=== PATIENT | female | born 1985 | race Caucasian/White ===

== ENCOUNTER 2016-07-27 16:25 | Emergency (ER) | payer OTHER ==
[~2016-07-27] VITALS: Ht 167.6 cm; Wt 89.2 kg
[2016-07-27 16:29] VITALS: TEMP 37.2; Ht 167.6 cm; Wt 89.2 kg
--- NOTE | 2016-07-27 19:34 | DIAGNOSTIC IMAGING REPORT ---
CHEST ONE VIEW PORTABLE CLINICAL HISTORY: Chest pain. COMPARISON STUDY: No previous studies for comparison. FINDINGS: Lung volumes are normal. Lungs are clear. There is no pneumothorax or pleural effusion. Cardiac size is normal. Mediastinal contours are normal. There is no evidence of pulmonary edema. IMPRESSION: No acute cardiopulmonary findings. Electronically signed by: Emanuel Shah M.D. 07/27/2016 7:33 PM Dictated Date/Time: 07/27/2016 7:33 PM
--- NOTE | 2016-07-27 19:51 | EMERGENCY ROOM VISIT NOTE ---
History Report prepared by Roger: Rupert Dexter Under the Supervision of: Dr. Rupert Demarco M.D. First contact with patient: 18:26 Chief Complaint: ILLNESS Stated Complaint: CONGESTED, HOT/COLD, COUGH History of Present Illness The patient is a 31 year old female who presents to the Emergency Room with complaints of a persistent illness beginning about 2 weeks ago. She notes it started as cold symptoms. She notes she and her family are moving to [place] from [place] and has had a lack of sleep recently. She started getting aches and chills, and notes her joints feel sore. She has a sporadic cough and headache, but denies having any nausea, vomiting, ear ache, or abdominal pain. The patient reports drinking plenty of fluids. She denies having any other medical problems, any history of bronchitis, or any chance of . She denies smoking or using alcohol. The patient did not receive the flu shot this year. Source of History: patient, family Onset: about 2 weeks ago Position: other (global) Quality: other (illness) Timing: other (persistent) Associated Symptoms: + chills, + cough, + headache, No nausea, No vomiting Note: The patient notes her joints feel achy and sore. The patient denies any ear aches. Review of Systems See HPI for pertinent positives & negatives. A total of 10 systems reviewed and were otherwise negative. Past Medical & Surgical Medical Problems: (1) uterine contractions Old medical records were reviewed. Nurse's notes were reviewed and I agree with. [place] history cardiac disease, pulmonary disease, PE Family History No pertinent family history stated. Social History Smoking Status: Never Smoker Drug Use: none Marital Status: Housing Status: lives with family Current/Historical Medications No Active Prescriptions or Reported Meds Allergies Coded Allergies: Morphine (Verified Allergy, Unknown, ITCHY AND HIVES, 07/27/16) Physical Exam Vital Signs Date Time Temp Pulse Resp B/P Pulse Ox O2 Delivery O2 Flow Rate FiO2 07/27/16 20:23 74 16 111/68 99 07/27/16 16:29 37.2 77 18 108/71 98 Room Air Physical Exam General: Well developed well nourished in no acute distress, breathing comfortably on room air. Normal speech HEENT: Normal cephalic atraumatic. Pupils are equal round and reactive to light. Sclerae anicteric Extraocular movements are intact. Oropharynx is pink with moist mucous membranes. No swelling of the mouth lips or tongue. Tms are normal bilaterally. Neck: Supple with a midline trachea. No meningeal signs or stiffness, no JVD or bruits. No Stridor. Chest: Clear to auscultation bilaterally. No wheezes or rhonchi. No increased work of breathing. Heart: regular rate and rhythm. Abdomen: Soft nontender, nondistended without rebound guarding or rigidity. Extremities: No cyanosis clubbing or edema. No calf tenderness or assymetry Spine/Back. Non tender to palpation. No CVA tenderness Skin: Good turgor without rashes. Neurologic exam: Cranial nerves two through 12 are intact. Motor and sensation are intact and symmetrical throughout. Medical Decision & Procedures ER Provider Diagnostic Interpretation: X-ray results as stated below per interpretation by me and the radiologist: CHEST ONE VIEW PORTABLE FINDINGS: Lung volumes are normal. Lungs are clear. There is no pneumothorax or pleural effusion. Cardiac size is normal. Mediastinal contours are normal. There is no evidence of pulmonary edema. IMPRESSION: No acute cardiopulmonary findings. Electronically signed by: Emanuel Shah M.D. 07/27/2016 7:33 PM Dictated Date/Time: 07/27/2016 7:33 PM ED Course 1840: Past medical records reviewed. The patient was evaluated in room C1B, and a complete history and physical examination were performed. 2009: I reassessed the patient and she is doing better. 2015: Upon reevaluation, the patient is doing well. I discussed the results and treatment plan with the patient. She verbalized agreement of the treatment plan. The patient was discharged home. Medical Decision Differentials include bronchitis, viral illness, RSV, pneumonia, dehydration, otitis media, and pneumonia. This patient comes in as described above. She's had a cough for a week or so and over the last several days of body aches. She looks well here. She is completely [id number] .she's not hypoxemic. She's not coughing. She is afebrile. Her lungs are clear.. She has no wheezing. Her tympanic membranes are normal. She has nothing that she has meningitis or sepsis. Chest x-ray was unremarkable and does not show any pneumonia. Her son is also sick with similar complaints most likely this is a viral illness/bronchitis. It could be influenza but she is well outside the window for treatment and she is afebrile. I told her rest and drink plenty of fluids use cxop-tqb-xakczty medications but do not exceed the liif-gqa-hxnemin recommended dosages for Tylenol or ibuprofen and return if: worsening of symptoms, not tolerating fluids, any new problems or concerns. She followed by regular doctor later this week if not better and return ER at any point if symptoms worsen. Impression Primary Impression: Bronchitis Additional Impression: URI (upper respiratory infection) Scribe Attestation The scribe's documentation has been prepared under my direction and personally reviewed by me in its entirety. I confirm that the note above accurately reflects all work, treatment, procedures, and medical decision making performed by me. Departure Information Dispostion Home / Self-Care Prescriptions No Active Prescriptions or Reported Meds Referrals No Doctor, Assigned (PCP) Patient Instructions My [facility] Additional Instructions Rest. Drink plenty of fluids. Return if: Worsening of symptoms, not tolerating fluids,shortness of breath, any new problems or concerns Follow-up with your doctor this week for recheck if not getting better Problem Qualifiers
[2016-07-27 20:23] VITALS: BP 111/68; PULSE 74; O2SAT 99
== END 2016-07-27 20:24 | disposition home or self-care (01) ==
LOC: C.EDB 16:27 → C.EDC 20:24
DX: J40 Bronchitis, not specified as acute or chronic (principal); J06.9 Acute upper respiratory infection, unspecified

== ENCOUNTER 2016-10-10 04:27 | Emergency (ER) | payer OTHER ==
[~2016-10-10] VITALS: Ht 165.1 cm; Wt 84.6 kg
[2016-10-10 04:35] VITALS: TEMP 36.4; Ht 165.1 cm; Wt 84.6 kg
[2016-10-10] MEDS ORDERED: KETOROLAC TROMETHAMINE 30 MG/ML VIAL IV STA (04:52)
[2016-10-10] MEDS ORDERED: SODIUM CHLORIDE 0.9% 1000ML 1,000 ML IV STA (04:52)
[2016-10-10] MEDS ORDERED: ONDANSETRON INJ 2 MG/ML 2 ML VIAL IV STA (04:52)
--- NOTE | 2016-10-10 04:55 | EMERGENCY ROOM VISIT NOTE ---
History Report prepared by Scribe: Kermit Radford Under the Supervision of: Dr. Stephen Lewis D.O. First contact with patient: 04:48 Chief Complaint: FLANK PAIN Stated Complaint: POSSIBLE KIDNEY STONE History of Present Illness The patient is a 31 year old female who presents to the Emergency Room with complaints of persistent left flank pain that started this morning. The pain is rated 8 or 9 /10 in severity. She also complains of nausea and vomiting. The patient denies urinary symptoms. She has a history of kidney stones and UTI. Source of History: patient Onset: this morning Position: back (left flank) Symptom Intensity: 8 or 9 / 10 Timing: other (persistent) Associated Symptoms: + nausea, + vomiting, No urinary symptoms Review of Systems See HPI for pertinent positives and negatives. A total of ten systems were reviewed and were otherwise negative. Past Medical & Surgical Medical Problems: (1) Bronchitis (2) H/O renal calculi (3) H/O urinary tract infection (4) uterine contractions (5) URI (upper respiratory infection) Family History No pertinent family history Social History Smoking Status: Never Smoker Drug Use: none Marital Status: Housing Status: lives with family Current/Historical Medications Scheduled Cholecalciferol (Vitamin D3), 1,000 UNITS PO DAILY Fish Oil ([place]-3), 1 CAP PO DAILY Probiotic Product (Probiotic), 3 CAP PO DAILY [Vitex-Chasberry], 1 CAP PO DAILY Allergies Coded Allergies: Yeast (Verified Allergy, Mild, HIVES, 10/10/16) Morphine (Verified Allergy, Unknown, ITCHY AND HIVES, 07/27/16) Physical Exam Vital Signs Date Time Temp Pulse Resp B/P Pulse Ox O2 Delivery O2 Flow Rate FiO2 10/10/16 05:50 63 10/10/16 05:39 60 18 95/56 100 Room Air 10/10/16 04:35 36.4 64 20 125/82 100 Room Air Physical Exam GENERAL: Writhing pain, rocking back and forth. HENT: Normocephalic, atraumatic. Oropharynx unremarkable. EYES: Normal conjunctiva. Sclera non-icteric. NECK: Supple. No nuchal rigidity. FROM. No JVD. RESPIRATORY: Clear to auscultation. CARDIAC: Regular rate, normal rhythm. Extremities warm and well perfused. Pulses equal. ABDOMEN: Soft, non-distended. No tenderness to palpation. No rebound or guarding. No masses. RECTAL: Deferred. MUSCULOSKELETAL: Left CVA tenderness. LOWER EXTREMITIES: Calves are equal size bilaterally and non-tender. No edema. No discoloration. NEURO: Normal sensorium. No sensory or motor deficits noted. SKIN: Diaphoretic. Medical Decision & Procedures ER Provider Diagnostic Interpretation: CT results as stated below per my review and radiologist interpretation CT ABDOMEN & PELVIS: 5 mm stone int he left distal ureter with moderate obstructive changes. Bilateral nephrolithiasis. Small subpleural nodules. Radiologist: Wiliam Gonzales MD. Laboratory Results 10/10/16 05:12 Red Blood Count 4.47, Mean Corpuscular Volume 89.9, Mean Corpuscular Hemoglobin 30.9, Mean Corpuscular Hemoglobin Concent 34.3, Mean Platelet Volume 10.3, Neutrophils (%) (Auto) 88.9, Lymphocytes (%) (Auto) 7.7, Monocytes (%) (Auto) 2.5, Eosinophils (%) (Auto) 0.2, Basophils (%) (Auto) 0.2, Neutrophils # (Auto) 11.58, Lymphocytes # (Auto) 1.00, Monocytes # (Auto) 0.32, Eosinophils # (Auto) 0.03, Basophils # (Auto) 0.02 10/10/16 05:12 Test 10/10/16 04:49 10/10/16 05:12 White Blood Count 13.01 K/uL (4.8-10.8) Red Blood Count 4.47 M/uL (4.2-5.4) Hemoglobin 13.8 g/dL (12.0-16.0) Hematocrit 40.2 % (37-47) Mean Corpuscular Volume 89.9 fL (80-100) Mean Corpuscular Hemoglobin 30.9 pg (25-34) Mean Corpuscular Hemoglobin Concent 34.3 g/dl (32-36) Platelet Count 280 K/uL (130-400) Mean Platelet Volume 10.3 fL (7.4-10.4) Neutrophils (%) (Auto) 88.9 % Lymphocytes (%) (Auto) 7.7 % Monocytes (%) (Auto) 2.5 % Eosinophils (%) (Auto) 0.2 % Basophils (%) (Auto) 0.2 % Neutrophils # (Auto) 11.58 K/uL (1.4-6.5) Lymphocytes # (Auto) 1.00 K/uL (1.2-3.4) Monocytes # (Auto) 0.32 K/uL (0.11-0.59) Eosinophils # (Auto) 0.03 K/uL (0-0.5) Basophils # (Auto) 0.02 K/uL (0-0.2) RDW Standard Deviation 41.9 fL (36.4-46.3) RDW Coefficient of Variation 12.7 % (11.5-14.5) Immature Granulocyte % (Auto) 0.5 % Immature Granulocyte # (Auto) 0.06 K/uL (0.00-0.02) Urine Color YELLOW Urine Appearance CLEAR (CLEAR) Urine pH 6.0 (4.5-7.5) Urine Specific [place] 1.021 (1.000-1.030) Urine Protein NEG (NEG) Urine Glucose (UA) NEG (NEG) Urine Ketones TRACE (NEG) Urine Occult Blood 2+ (NEG) Urine Nitrite NEG (NEG) Urine Bilirubin NEG (NEG) Urine Urobilinogen NEG (NEG) Urine Leukocyte Esterase NEG (NEG) Urine WBC (Auto) 1-5 /hpf (0-5) Urine RBC (Auto) >30 /hpf (0-4) Urine Hyaline Casts (Auto) 1-5 /lpf (0-5) Urine Epithelial Cells (Auto) 20-30 /lpf (0-5) Urine Bacteria (Auto) NEG (NEG) Anion Gap 8.0 mmol/L (3-11) Est Creatinine Clear Calc Drug Dose 101.1 ml/min Estimated GFR () 104.3 Estimated GFR (Non- 90.0 BUN/Creatinine Ratio 16.4 (10-20) Calcium Level 8.6 mg/dl (8.5-10.1) Laboratory results reviewed by me Medications Administered Medications (Trade) Dose Ordered Sig/Noreen Route Start Time Stop Time Status Last Admin Dose Admin Sodium Chloride (Nss 1000ml) 1,000 ml @ 999 mls/hr Q1H1M STAT IV 10/10/16 04:52 10/10/16 05:52 DC 10/10/16 05:17 999 MLS/HR Ondansetron HCl (Zofran Inj) 4 mg NOW STAT IV 10/10/16 04:52 10/10/16 04:54 DC 10/10/16 05:17 4 MG Ketorolac Tromethamine (Toradol Inj) 30 mg NOW STAT IV 10/10/16 04:52 10/10/16 04:54 DC 10/10/16 05:17 30 MG Tamsulosin HCl (Flomax Cap) 0.4 mg NOW ONCE PO 10/10/16 06:30 10/10/16 06:31 DC 10/10/16 06:32 0.4 MG Acetaminophen/ Hydrocodone Bitart ([place] 5/325mg Home Pack) 1 homepack UD ONCE PO 10/10/16 06:30 10/10/16 06:31 DC 10/10/16 06:33 1 HOMEPACK Acetaminophen/ Hydrocodone Bitart ([place] 5/325 Tab) 1 tab NOW PRN PO 10/10/16 06:30 10/24/16 06:29 10/10/16 06:32 1 TAB ED Course 0450: The patient was evaluated in room B11b. A complete history and physical exam was performed. 0452: Toradol 30 mg IV, Zofran 4 mg IV, NSS 1000 ml @ 999 mls/hr. 0628: Reassessed the patient. Resting no distress no current pain. Discussed the workup. She will follow up with Urology. 0630: [place] 5/325 mg PO, [place] 5/325 mg PO homepack, Flomax 0.4 mg PO. Medical Decision Differential diagnosis includes kidney stone, UTI, ureterolithiasis, pyelonephritis, musculoskeletal pain. Repeat examination the patient's resting in no distress patient was given IV fluids and Zofran and Toradol. Patient was also given by mouth [place]. At 6:30 AM the patient's resting comfortably. I discussed evaluation with the patient and patient's family at bedside. I will refer her to urology and gave the patient Flomax and Zofran and [place].. Impression Primary Impression: Ureterolithiasis Scribe Attestation The scribe's documentation has been prepared under my direction and personally reviewed by me in its entirety. I confirm that the note above accurately reflects all work, treatment, procedures, and medical decision making performed by me. Departure Information Dispostion Home / Self-Care Prescriptions Hydrocodone/Acetaminophen 5MG/325MG ([place] 5MG/325MG) Tab 1 TABLET PO Q6H Y for Pain, #20 TAB Prov: Stephen Lewis, DO 10/10/16 Tamsulosin Hcl (FLOMAX) 0.4 Mg Cap 0.4 MG PO DAILY, #10 CAP Prov: Stephen Lewis, DO 10/10/16 Ondasetron Odt (ZOFRAN ODT) 4 Mg Tab 4 MG SL Q6H for Nausea, #10 TAB Prov: Stephen Lewis, DO 10/10/16 Referrals No Doctor, Assigned (PCP) Garrett Schwarz MD, Urology Forms HOME CARE DOCUMENTATION FORM, IMPORTANT VISIT INFORMATION Patient Instructions Kidney Stones, My [facility] Additional Instructions Follow-up with Dr. Schwarz this week. Return for increased pain. Increase clear fluid intake. Take Zofran [place] Motrin and Flomax for your kidney stone.
[2016-10-10] MEDS ORDERED: BCPILLS PO (04:58)
[2016-10-10 05:30] LABS: HEMATOCRIT 40.2 % (37-47); MEAN CELL VOLUME 89.9 fL (80-100); MEAN CORPUSCULAR HEMOGLOBIN 30.9 pg (25-34); MEAN CORPUSCULAR HGB CONC 34.3 g/dl (32-36); MEAN PLATELET VOLUME 10.3 fL (7.4-10.4); PLATELET COUNT 280 K/uL (130-400); RED BLOOD COUNT 4.47 M/uL (4.2-5.4); WHITE BLOOD COUNT 13.01 K/uL (4.8-10.8)
[2016-10-10] MEDS ORDERED: MISCCAP80 PO (05:30)
[2016-10-10] MEDS ORDERED: CHOL1000 PO (05:32)
[2016-10-10] MEDS ORDERED: OMEG10007 PO (05:33)
[2016-10-10] MEDS ORDERED: [UNRECOGNIZED DRUG - OTHER] PO (05:34)
[2016-10-10 05:45] LABS: BUN/CREATININE RATIO 16.4 (10-20); CALCIUM 8.6 mg/dl (8.5-10.1); CREATININE 0.85 mg/dl (0.60-1.20); POTASSIUM 3.5 mmol/L (3.5-5.1)
[2016-10-10 05:47] LABS: BASO % 0.2 %; BASO ABS # 0.02 K/uL (0-0.2); COMPLETE YES; EOS % 0.2 %; IG% 0.5 %; LYMPH % 7.7 %; MONO % 2.5 %; NEUT % 88.9 %
[2016-10-10 05:55] LABS: URINE APPEARANCE CLEAR (CLEAR); URINE BILIRUBIN NEG (NEG); URINE COLOR YELLOW; URINE EPITHELIAL CELL AUTO 20-30 /lpf (0-5); URINE NITRITE NEG (NEG); URINE SPECIFIC GRAVITY 1.021 (1.000-1.030); UROBILINOGEN NEG (NEG)
[2016-10-10 05:57] LABS: MANUAL MICROSCOPIC REQUIRED? NO; REVIEW REQ? NO
[2016-10-10] MEDS ORDERED: TAMSULOSIN HCL 0.4 MG CAP PO ONE (06:30)
[2016-10-10] MEDS ORDERED: HYDROCODONE/ACETAMOPHEN 5/325MG TAB PO PRN (06:30)
[2016-10-10] MEDS ORDERED: NORCO 5/325MG HOME PACK PO ONE (06:30)
[2016-10-10] MEDS ORDERED: HYDR-5688 PO (06:44)
[2016-10-10] MEDS ORDERED: TAMS0.4C38 PO (06:44)
[2016-10-10] MEDS ORDERED: ONDA4TAB10 SL (06:44)
[2016-10-10 06:50] VITALS: BP 95/55; PULSE 65; O2SAT 98
--- NOTE | 2016-10-10 08:41 | DIAGNOSTIC IMAGING REPORT ---
CT OF THE ABDOMEN AND PELVIS WITHOUT CONTRAST, STONE PROTOCOL CLINICAL HISTORY: Flank pain. COMPARISON STUDY: None. TECHNIQUE: Helical axial images of the abdomen and pelvis were obtained without IV or oral contrast according to renal stone protocol. FINDINGS: A 5 mm distal left ureteral calculus results in moderate left hydroureteronephrosis. There is a 4 mm calculus within lower pole of the right kidney. 3 left renal calculi measure up to 5 mm. There is no right hydronephrosis. There are no right ureteral calculus. Evaluation of the remainder of the abdomen and pelvis is suboptimal on this unenhanced exam. The liver, spleen, adrenal glands and pancreas are normal. There is no evidence for a bowel obstruction. The appendix is normal. No suspicious osseous lesions are present. IMPRESSION: 1. 5 mm distal left ureteral calculus which results in moderate left hydroureteronephrosis. 2. Bilateral nephrolithiasis. Electronically signed by: Emanuel Shah M.D. 10/10/2016 8:40 AM Dictated Date/Time: 10/10/2016 8:37 AM
== END 2016-10-10 06:52 | disposition home or self-care (01) ==
LOC: C.EDB 04:28
DX: N20.1 Calculus of ureter (principal); Z87.440 Personal history of urinary (tract) infections; Z87.442 Personal history of urinary calculi

== ENCOUNTER → 2016-10-12 | Outpatient (CLI) | payer OTHER ==
[~2016-10-12] MED LIST: CHOL1000 PO; HYDR-5688 PO; MISCCAP80 PO; OMEG10007 PO; ONDA4TAB10 SL; TAMS0.4C38 PO; [UNRECOGNIZED DRUG - OTHER] PO
--- NOTE | 2016-10-12 16:56 | DIAGNOSTIC IMAGING REPORT ---
KUB CLINICAL HISTORY: Nephrolithiasis. COMPARISON STUDY: CT of the abdomen and pelvis October 10, 2016. FINDINGS: Bowel gas pattern is normal. Note is made of a 4 mm calculus within the lower pole of the right kidney and a few calculi within the lower pole of the left kidney which measure up to 4 mm. The distal left ureteral calculus shown on CT of October 10, 2016 is not visualized. IMPRESSION: 1. Nonvisualization of the distal left ureteral calculus shown on CT of October 10, 2016. This calculus has likely passed. 2. Bilateral nephrolithiasis. Electronically signed by: Emanuel Shah M.D. 10/12/2016 4:54 PM Dictated Date/Time: 10/12/2016 4:53 PM
== END | disposition home or self-care (01) ==
LOC: C.RADBC 16:09
PROVIDERS: ATTEND Nurse Practitioner Family
DX: N20.0 Calculus of kidney (principal)

== ENCOUNTER → 2016-10-12 | Outpatient (CLI) | payer OTHER | END | disposition home or self-care (01) | LOC: C.LABSPEC 10:13 | PROVIDERS: ATTEND Nurse Practitioner Family | DX: N20.0 Calculus of kidney (principal) ==

== ENCOUNTER → 2016-10-13 | Outpatient (CLI) | payer OTHER ==
[~2016-10-13] MED LIST changes: +OPTIRAY 300 IV PRN
--- NOTE | 2016-10-13 11:30 | DIAGNOSTIC IMAGING REPORT ---
IVP W/OR W/O TOMOGRAMS CLINICAL HISTORY: N20.0 [id number] nephrocalcinosis COMPARISON STUDY: 10/12/2016 FINDINGS: Survey film of the abdomen shows punctate bilateral renal nephrocalcinosis unchanged from the prior study. Study is performed following the intravenous injection of 1 cc nonionic contrast. There is prompt opacification of both upper renal collecting systems. There is no evidence renal mass or hydronephrosis. Ureters normal in course and caliber. Bladder fills well. Post void shows no significant residual. IMPRESSION: Negative study. Lateral nonobstructing nephrocalcinosis unchanged in the prior study. No evidence for an obstructing urinary tract calculus. Electronically signed by: Cristiano Mukherjee M.D. 10/13/2016 11:29 AM Dictated Date/Time: 10/13/2016 11:27 AM
== END | disposition home or self-care (01) ==
LOC: C.RAD 10:11
PROVIDERS: ATTEND Nurse Practitioner Family
DX: N20.0 Calculus of kidney (principal)